=== PATIENT | female | born 1955 ===

== ENCOUNTER 2025-01-12 11:46 | Inpatient (IN) | payer MEDICARE ==
[~2025-01-12] VITALS: Ht 160 cm; Wt 71.9 kg
[2025-01-12 12:00] VITALS: BP 175/60
--- NOTE | 2025-01-12 12:00 | NUR ---
Pierre of care: Received patient as direct admit. Oriented to person, place, situation but unsure of date/year. Follows commands with equal strength/sensation. Ambulates in room but has unsteady gait/tendency to lean backwards, necessitating one-person assist. In NSR in 70s but blood pressure elevated with SBP in 170-180s. Oxygen saturation in mid-90s on room air with diminished lung sounds & no cough noted. Voided clear, yellow urine. PIV placed in RFA with good blood return. MD Campos currently at bedside. Will continue to monitor.
[2025-01-12] MEDS ORDERED: FLU VACC TS2024-25(6MOS UP)/PF 45 MCG/0.5 ML SYRINGE IM SCH (12:10)
[2025-01-12] MEDS ORDERED: FentaNYL Citrate 50 MCG/ML 2 ML Injection IV PRN (13:10)
[2025-01-12] MEDS ORDERED: HydrALAZINE HCl 20 MG / ML 1ML Vial IV PRN (13:10)
[2025-01-12] MEDS ORDERED: Acetaminophen 325 MG TABLET PO PRN (13:15)
[2025-01-12] MEDS ORDERED: Polyethylene Glycol 3350 17 gm PO PRN ×2 (13:15→15:15)
[2025-01-12 13:31] LABS: BASOPHILS ABSOLUTE AUTO 0.03 K/mm3 (0.00-0.23); BASOPHILS PERCENT AUTO 0 % (0-2); EOSINOPHILS ABSOLUTE AUTO 0.09 K/mm3 (0.00-0.68); EOSINOPHILS PERCENT AUTO 1 % (0-6); Hematocrit 43.1 % (33.0-51.0); Hemoglobin 14.5 g/dL (11.5-16.0); IMMATURE GRAN ABSOLUTE AUTO 0.08 K/mm3 (0.00-0.10); IMMATURE GRAN PERCENT AUTO 1 % (0-1); LYMPHOCYTES ABSOLUTE AUTO 3.63 K/mm3 (0.84-5.20); LYMPHOCYTES PERCENT AUTO 23 % (21-46); MONOCYTES ABSOLUTE AUTO 1.46 K/mm3 (0.16-1.47); MONOCYTES PERCENT AUTO 9 % (4-13); Mean Corpuscular HGB Conc 33.6 g/dL (31.5-36.5); Mean Corpuscular Volume 92 fL (80-100); Mean Platelet Volume 9.7 fL (9.1-12.4); NEUTROPHILS ABSOLUTE AUTO 10.76 K/mm3 (1.96-9.15); NEUTROPHILS PERCENT AUTO 67 % (41-73); Platelet Count 323 K/mm3 (150-400); RDW Coefficient Variation 12.8 % (11.7-14.2); RDW Standard Deviation 43.2 fL (35.1-46.3); Red Blood Cell Count 4.67 M/mm3 (3.80-5.20); White Blood Cell Count 16.05 K/mm3 (4.00-11.30)
[2025-01-12] MEDS ORDERED: Piperacillin/Tazobactam Sod 3.375 GM in NS 100 ML IV SCH (13:33)
[2025-01-12 13:44] LABS: Source, Urine Clean Catch
[2025-01-12 13:55] LABS: Appearance, Urine Hazy (Clear); Bilirubin, Urine Neg (Neg); Blood, Urine 5+ (Neg); Color, Urine Yellow (P-Yellow); Glucose Qualitative, Urine Neg (Neg); Ketones, Urine Neg (Neg); Leukocyte Esterase, Urine 3+ (Neg); Nitrite, Urine Neg (Neg); Protein, Urine 2+ (Neg); Urobilinogen, Urine NORM (Normal); pH, Urine 6.5 (5.0-8.0)
[2025-01-12 14:17] LABS: Albumin, Blood 2.8 g/dL (3.4-5.0); Albumin/Globulin Ratio 0.8 (0.8-1.8); Bilirubin, Total 0.2 mg/dL (0.1-1.0); Bun/Creatinine Ratio 36.9 (12.0-20.0); Calcium, Blood 9.1 mg/dL (8.5-10.1); Creatinine, Blood 0.62 mg/dL (0.40-1.00); Globulin, Blood 3.4 g/dL (2.2-4.0); Potassium, Blood 3.9 mmol/L (3.5-5.5); Total Protein, Blood 6.2 g/dL (6.4-8.2)
[2025-01-12 14:28] LABS: Bacteria Many /hpf; Red Blood Cells, Urine 50-100 /hpf (0-2); Squamous Epithelial Cells Rare /hpf (Few); White Blood Cells, Urine 50-100 /hpf (0-5)
[2025-01-12 14:29] LABS: Mucus Light (0-Heavy)
[2025-01-12 14:30] VITALS: BP 182/67
[2025-01-12 15:05] VITALS: BP 172/56
[2025-01-12 15:15] VITALS: BP 164/59
[2025-01-12] MEDS ORDERED: TraMADol HCl 50 MG Tab PO PRN ×2 (15:15→22:00)
--- NOTE | 2025-01-12 15:17 | NUR ---
THIS RN IS BREAKING NURSE PARVIZ PRIMARY RN. DR. DAVIS ON THE UNIT AND THIS RN DISCUSSED HYPERTENSTION AND HE STATED THAT HE IS FINE WITH SBP 180'S AT THIS TIME. HE WILL LOOK AT THE MEDICATIONS AND CHANGE PARAMETERS.
[2025-01-12] MEDS ORDERED: Albuterol HFA200 ACT/6.7 GM INH INH PRN (15:25)
[2025-01-12] MEDS ORDERED: PRED20 PO (15:26)
[2025-01-12] MEDS ORDERED: ALBU90OI INH (15:26)
[2025-01-12] MEDS ORDERED: Aspir 8181 MG PO (15:28)
[2025-01-12] MEDS ORDERED: HUMULIN N100 UNIT/4 SC (15:28)
[2025-01-12] MEDS ORDERED: GLIPIZIDE XL10 MG PO (15:28)
[2025-01-12] MEDS ORDERED: GLUCOPHAGE1000 M1 PO (15:29)
[2025-01-12] MEDS ORDERED: ATOR80 PO (15:29)
[2025-01-12] MEDS ORDERED: DILT60 PO (15:30)
[2025-01-12] MEDS ORDERED: METO100 PO (15:30)
[2025-01-12 16:00] VITALS: BP 176/66
[2025-01-12] MEDS ORDERED: Atorvastatin 40 MG Tab PO SCH (16:00)
[2025-01-12] MEDS ORDERED: AmLODIPine Besylate 5 MG Tab PO SCH (16:00)
[2025-01-12] MEDS ORDERED: Labetalol HCL 5 MG/ML 4ML Injection (Single Dose) IV PRN (16:10)
[2025-01-12] MEDS ORDERED: Insulin Human Lispro 100 Units/ML 3ML Syringe SC SCH (16:30)
[2025-01-12] MEDS ORDERED: Insulin NPH 10 Unit/0.1ML (Single Dose) SC SCH (16:30)
--- NOTE | 2025-01-12 18:00 | NUR ---
Shift summary: Neuro WNL. OOB to chair/bathroom with one person assist. Vital signs stable. Targeting SBP below [address] Campos. Room air. Awaiting sputum sample but she states she does not have productive cough. Eating well. Voiding. PIV in place with zosyn infusing. Received fentanyl x1 & ultram x1 - continues to endorse pain but declined any other medications. I gave her miralax due to fecal loading noted on CT. NPO p MN for potential bronch tomorrow. Will continue to monitor.
--- NOTE | 2025-01-12 19:28 | NUR ---
TRANSFER NOTE PATIENT TRANSFERRED FROM PCU-18. ROOM AIR. ALERT. RESP EVEN AND UNLABORED. ZOSYN INFUSING. PATINET ABLE TO MAKE NEEDS KNOWN. EDUCATED PATIENT AND DAUGHTER SHELBY AT BEDSIDE ON FALL SAFETY AND TO NOTIFY STAFF WHEN PATIENT NEEDS TO USE BATHROOM WE HAVE NOT ASSESSED HER GAIT YET. PER REPORT SHE IS A 1/STAND-BY ASSIST R/T UNSTEADINESS. NONSKID SOCKS IN ROOM, PATIENT REFUSED TO WEAR AT THIS TIME. CALL LIGHT WITHIN REACH. BED LOCKED IN LOW POSITION.
[2025-01-12 19:52] VITALS: BP 108/59
[2025-01-12] MEDS ORDERED: AMOX-CLAV 875-1 EAC5 PO (19:56)
[2025-01-12] MEDS ORDERED: Lactobacil 2-S.Thermo-Bifido 1 1 Cap PO SCH (21:00)
[2025-01-12] MEDS ORDERED: dilTIAZem HCL 60 MG TAB PO SCH (21:00)
[2025-01-12] MEDS ORDERED: Metoprolol Tartrate 50 MG Tab PO SCH (21:00)
[2025-01-12] MEDS ORDERED: Sennosides 8.6 MG Tab PO SCH (21:00)
--- NOTE | 2025-01-12 21:57 | NUR ---
@4777 THIS EXHIBIT BUILDER CALLED ON-CALL HOSPITALIST ZEENAT D/T PT REQUESTING IBUPROFEIN 600MG. ZEENAT DECLINED THE REQUEST D/T VERY BAD RENAL FUNCTION PER ZEENAT'S STATEMENT. NEW T-ORDER WAS RECEIVED FOR TRAMADOL PO 50MG Q6HRS. THIS EXHIBIT BUILDER EDITED THE EXISTING TRAMADOL PO Q8HR PO ORDER AND CHANGED IT TO: TRAMADOL 50MG PO Q6HRS PRN. PER ZEENAT'S STATEMENT:'TELL THE PT NOT TO TAKE ANY NSAID'S". THIS EXHIBIT BUILDER NOTIFIED THE PT. ENTERED TO [facility], ROUGH PATCHER KAREEN NOTIFIED. NO ADDITIONAL NEW ORDERS AT THIS TIME.
[2025-01-12] MEDS ORDERED: NS 250 ML IV PRN (23:55)
[2025-01-13] VITALS (41 sets, daily range): BP systolic 72–171; BP diastolic 50–92
--- NOTE | 2025-01-13 02:44 | NUR ---
SHIFT SUMMARY PT HAVE BEEN NPO SINCE MIDNIGHT FOR A POSSIBLE BRONCOSCOPY TODAY. PT IS SBA WITH FWW TO THE RESTROOM, VOIDING W/O ANY COMPLICATIONS. CONTINENT, ATTENDS IN PLACE. A/O X4, ABLE TO MAKE HER NEEDS KNOWN AND COOPERATIVE WITH CARE. DAUGHTER SHELBY SPENDING THE NIGHT IN THE HOSPITAL ROOM. O2 SAT'S 98% ON RA. TELE: SR @84. PT REPORTWS NOT HAVING PRODUCTIVE COUGH, NONE NOTED. SPUTUM SAMPLE NOT COLLECTED DURING THIS SHIFT. HS B. PT REPORTS TOOTH ACHE AND PAIN IN THE SPINE 7-07/09, MEDICATED PER EMAR. ZOSYN INFUSED ORDERED. NO ACUTE EVENTS DURING THIS SHIFT. BED AT THE LOWEST POSITION, CALL LIGHT W/I REACH.
[2025-01-13 06:37] LABS: BASOPHILS ABSOLUTE AUTO 0.03 K/mm3 (0.00-0.23); BASOPHILS PERCENT AUTO 0 % (0-2); EOSINOPHILS ABSOLUTE AUTO 0.19 K/mm3 (0.00-0.68); EOSINOPHILS PERCENT AUTO 1 % (0-6); Hematocrit 44.4 % (33.0-51.0); Hemoglobin 14.8 g/dL (11.5-16.0); IMMATURE GRAN ABSOLUTE AUTO 0.08 K/mm3 (0.00-0.10); IMMATURE GRAN PERCENT AUTO 1 % (0-1); LYMPHOCYTES ABSOLUTE AUTO 3.26 K/mm3 (0.84-5.20); LYMPHOCYTES PERCENT AUTO 25 % (21-46); MONOCYTES ABSOLUTE AUTO 1.42 K/mm3 (0.16-1.47); MONOCYTES PERCENT AUTO 11 % (4-13); Mean Corpuscular HGB Conc 33.3 g/dL (31.5-36.5); Mean Corpuscular Volume 93 fL (80-100); Mean Platelet Volume 9.8 fL (9.1-12.4); NEUTROPHILS ABSOLUTE AUTO 8.22 K/mm3 (1.96-9.15); NEUTROPHILS PERCENT AUTO 62 % (41-73); Platelet Count 303 K/mm3 (150-400); RDW Coefficient Variation 12.8 % (11.7-14.2); RDW Standard Deviation 43.9 fL (35.1-46.3); Red Blood Cell Count 4.78 M/mm3 (3.80-5.20)
[2025-01-13 07:02] LABS: Albumin, Blood 2.9 g/dL (3.4-5.0); Albumin/Globulin Ratio 0.9 (0.8-1.8); Bilirubin, Total 0.5 mg/dL (0.1-1.0); Bun/Creatinine Ratio 32.8 (12.0-20.0); Calcium, Blood 8.7 mg/dL (8.5-10.1); Creatinine, Blood 0.55 mg/dL (0.40-1.00); Globulin, Blood 3.4 g/dL (2.2-4.0); Total Protein, Blood 6.3 g/dL (6.4-8.2)
[2025-01-13 07:09] LABS: International Normalized Ratio 0.94; Prothrombin Time Results 10.1 Sec (9.7-11.5)
[2025-01-13] MEDS ORDERED: Insulin NPH 100 Unit / ML 10ML Vial SC SCH (07:30)
[2025-01-13] MEDS ORDERED: PredniSONE 20 MG Tab PO SCH (09:00)
[2025-01-13] MEDS ORDERED: Enoxaparin 40 MG/0.4 ML SYR SC SCH (09:00)
[2025-01-13] MEDS ORDERED: Aspirin 81 MG TabEC PO SCH (09:00)
[2025-01-13] MEDS ORDERED: FentaNYL Citrate 50 MCG/ML 2 ML Injection ONE (09:28)
[2025-01-13] MEDS ORDERED: propofoL 20 ML IV ONE (09:29)
[2025-01-13] MEDS ORDERED: Lidocaine HCl 4% 5 ML SDA INH ONE (09:30)
[2025-01-13] MEDS ORDERED: EpiNEPhrine 1 MG/1 ML 1ML Vial ONE (09:36)
[2025-01-13] MEDS ORDERED: Lidocaine 2% 5 ML SDV ONE (09:37)
[2025-01-13] MEDS ORDERED: Lactated Ringer's 1,000 ML IV SCH (09:40)
[2025-01-13] MEDS ORDERED: Lidocaine HCl 4% 5 ML SDA ONE (09:42)
--- NOTE | 2025-01-13 09:47 | NUR ---
01/13/25 0947 Deo Cooley CONFIRMED AND REVIEWED H&P, MEDCICATIONS, ALLERGIES, MEDICAL HISTORY, RESPIRATORY HISTORY, VITAL SIGNS, 3-LEAD EKG, CONSENTS, AND PHYSICIAN ORDERS. PATIENT CONFIRMS NPO STATUS AND AGREES WITH SCHEDULED PROCEDURE. MONITOR INTACT WITH CONTINUOUS PULSE OXIMETRY, CAPNOGRAPHY, 3-LEAD EKG, INTERMITTENT BP. SUPPLEMENTAL O2 TO BE TITRATED THROUGHOUT PROCEDURE TO MAINTAIN O2 SATURATION ABOVE 90%. PATIENT DETERMINED TO BE ASA APPROPRIATE FOR PROPOFOL SEDATION PRIOR TO START OF PROCEDURE BY DR. ROCHA
--- NOTE | 2025-01-13 10:15 | NUR ---
INTO SDS VIA WHEELCHAIR. PT IS A&OX4-REPORTS FEELING "DIZZY." PT DENIES PAIN OR SOB AT REST. HISTORY AND ALLERGIES REVIEWED. LUNGS DIMINISHED IN THE BASES-RR 20'S SATS>90% ON RA. LIDO 4% NEB GIVEN. NPO STATUS CONFIRMED.
[2025-01-13] MEDS ORDERED: Lidocaine 2% Jelly Uro-Jet ONE (10:45)
[2025-01-13] MEDS ORDERED: Insulin Glargine-Yfgn 100 Unit/mL 3 ML SYR SC SCH (12:00)
--- NOTE | 2025-01-13 12:14 | NUR ---
[id number] PT REMAINS IN ENDO 2 AWAITING POST PROCEDURE X-RAY THEN RETURNED TO ROOM 331 VIA [facility]. PT VERY SLEEPY. SITTING HIGH FOLWERS. 02 @ 3L/MIN VIA WI STARTED FOR DECREASED SATS WHEN SLEEPING.
[2025-01-13] MEDS ORDERED: Ipratropium/Albuterol SulF 2.5-0.5MG/3 ML Amp INH SCH (13:00)
[2025-01-13] MEDS ORDERED: Phenylephrine HCl 100 MCG/ML-NS 10MLSYR (1MG/10ML) IV ONE (15:21)
--- NOTE | 2025-01-13 15:26 | NUR ---
MET WITH PATIENT AND HER DAUGHTER SHELBY. PATIENT HAD JUST COME BACK FROM HER [place]. SHE WAS VERY TIRED AT THIS TIME. PROVIDED THERAPUTIC CONVERSATION TO DAUGHTER.
--- NOTE | 2025-01-13 18:15 | NUR ---
PT A&OX4, VSS, RA, SR IN 80S ON TELE, SBA TO BATHROOM. PT WENT FOR BRONCHOSCOPY THIS MORNING, NO COMPLICATIONS. PT C/O PAIN PRIOR TO BRONCHOSCOPY, NO C/O PAIN ONCE BACK ON UNIT. DAUGHTER AT BEDSIDE FOR MOST OF SHIFT. IV ABX CONTINUED. CALLS APPROPRIATLY, BED IN LOW LOCKED POSITION FOR SAFETY, CALL LIGHT IN REACH.
[2025-01-14] MEDS ORDERED: Piperacillin/Tazobactam Sod 3.375 GM in NS 100 ML IV SCH
[2025-01-14 00:03] VITALS: BP 121/65
--- NOTE | 2025-01-14 04:28 | NUR ---
SHIFT SUMMARY ADMITTED FOR OBSTRUCTIVE PNEUMONIA/UTI. FULL CODE. IV ANTIB RX ARE SCHEDULED. ADA DIET. ACHS CBG'S - LOW SS. TELEMETRY: NSR @ 90 BPM. ON RA. BRONCHOSCOPY PERFORMED ON PREVIOUS SHIFT, BIOPSY OF RUL MASS TAKEN. DAUGHTER IS AT BEDSIDE. PATIENT LIVES ALONE IN [facility]. SHE IS INDEPENDENT IN ROOM. A&O X4. PAIN RX GIVEN.
[2025-01-14 04:35] VITALS: BP 122/64
[2025-01-14 06:14] LABS: BASOPHILS ABSOLUTE AUTO 0.03 K/mm3 (0.00-0.23); BASOPHILS PERCENT AUTO 0 % (0-2); EOSINOPHILS ABSOLUTE AUTO 0.27 K/mm3 (0.00-0.68); EOSINOPHILS PERCENT AUTO 3 % (0-6); Hematocrit 39.9 % (33.0-51.0); Hemoglobin 13.5 g/dL (11.5-16.0); IMMATURE GRAN ABSOLUTE AUTO 0.05 K/mm3 (0.00-0.10); IMMATURE GRAN PERCENT AUTO 1 % (0-1); LYMPHOCYTES ABSOLUTE AUTO 2.35 K/mm3 (0.84-5.20); LYMPHOCYTES PERCENT AUTO 29 % (21-46); MONOCYTES ABSOLUTE AUTO 0.82 K/mm3 (0.16-1.47); MONOCYTES PERCENT AUTO 10 % (4-13); Mean Corpuscular HGB Conc 33.8 g/dL (31.5-36.5); Mean Corpuscular Volume 92 fL (80-100); Mean Platelet Volume 10.1 fL (9.1-12.4); NEUTROPHILS PERCENT AUTO 57 % (41-73); Platelet Count 233 K/mm3 (150-400); RDW Coefficient Variation 12.7 % (11.7-14.2); RDW Standard Deviation 42.5 fL (35.1-46.3); Red Blood Cell Count 4.35 M/mm3 (3.80-5.20); White Blood Cell Count 8.22 K/mm3 (4.00-11.30)
[2025-01-14 07:01] LABS: Bun/Creatinine Ratio 20.4 (12.0-20.0); Calcium, Blood 8.6 mg/dL (8.5-10.1); Creatinine, Blood 0.44 mg/dL (0.40-1.00); Potassium, Blood 3.6 mmol/L (3.5-5.5)
[2025-01-14 07:28] VITALS: BP 181/58
[2025-01-14 07:54] VITALS: BP 190/57
[2025-01-14 07:55] VITALS: BP 137/62
--- NOTE | 2025-01-14 10:04 | NUR ---
CALLED DR WILLS, REPORTED BP R ARM 137/62, L ARM 190/57. NO NEW ORDERS.
[2025-01-14] MEDS ORDERED: VISBIOME 112.51 EACH PO (12:38)
--- NOTE | 2025-01-14 13:16 | NUR ---
iv pulled by aide, tele removed by aide. discharge reivewed with daughter and pt. verbalized understanding medsand instrucct. pt wheelede to door at [phone]
== END 2025-01-14 13:15 | disposition home or self-care (01) | DRG 167 ==
LOC: BHU 11:46 → PCU 11:48 → MEDS 11:48
PROVIDERS: Family Medicine; Hospitalist; Internal Medicine Critical Care Medicine; Student in an Organized Health Care Education/Training Program; ADMIT Internal Medicine
PROC: 3E033XZ Introduction of Vasopressor into Peripheral Vein, Percutaneous Approach (ICD-10-PCS; 2025-01-13)
PROC: 0BBC8ZX Excision of Right Upper Lung Lobe, Via Natural or Artificial Opening Endoscopic, Diagnostic (ICD-10-PCS; principal; 2025-01-13 10:00)
PROC: 0B9C8ZX Drainage of Right Upper Lung Lobe, Via Natural or Artificial Opening Endoscopic, Diagnostic (ICD-10-PCS; 2025-01-13 10:00)
PROC: 0BD48ZX Extraction of Right Upper Lobe Bronchus, Via Natural or Artificial Opening Endoscopic, Diagnostic (ICD-10-PCS; 2025-01-13 10:00)
DX: J18.9 Pneumonia, unspecified organism (principal); C78.7 Secondary malignant neoplasm of liver and intrahepatic bile duct; N12 Tubulo-interstitial nephritis, not specified as acute or chronic; N20.0 Calculus of kidney; E78.5 Hyperlipidemia, unspecified; E11.9 Type 2 diabetes mellitus without complications; J45.909 Unspecified asthma, uncomplicated; K59.00 Constipation, unspecified; F17.210 Nicotine dependence, cigarettes, uncomplicated; J44.9 Chronic obstructive pulmonary disease, unspecified; Z87.442 Personal history of urinary calculi; Z90.710 Acquired absence of both cervix and uterus; Z90.722 Acquired absence of ovaries, bilateral; Z90.79 Acquired absence of other genital organ(s); Z90.89 Acquired absence of other organs; Z79.82 Long term (current) use of aspirin; Z79.4 Long term (current) use of insulin; Z79.84 Long term (current) use of oral hypoglycemic drugs
CPT/HCPCS: 36415; 71045; 80048; 80053; 81001; 82947; 85025; 85610; 85730; 87040; 87086; 88104; 88108; 88305; 88341; 88342; 94640; 94664; 94760; A9270; J0171; J0360; J1815; J2003; J2371; J2543; J2704; J3010; J7050; J7120